=== PATIENT | male | born 1985 | race Caucasian/White ===

== ENCOUNTER 2018-03-13 09:15 | Emergency (ER) | payer OTHER ==
[~2018-03-13] VITALS: Ht 175.3 cm; Wt 88.6 kg
[2018-03-13] MEDS ORDERED: BUSP10TA23 PO (09:19)
[2018-03-13] MEDS ORDERED: QUET200T PO (09:19)
[2018-03-13] MEDS ORDERED: BUPR75 PO (09:19)
[2018-03-13] MEDS ORDERED: OLAN10TA3 PO (09:19)
[2018-03-13] MEDS ORDERED: KETOROLAC TROMETHAMINE 60 MG/2 ML VIAL IM ONE (10:00)
[2018-03-13] MEDS ORDERED: ETHYL CHLORIDE 103.5 ML SPRAY TP ONE (10:00)
[2018-03-13] MEDS ORDERED: LIDOCAINE 1% 10 ML VIAL INJ ONE (11:00)
[2018-03-13 11:31] VITALS: BP 138/94
== END 2018-03-13 11:43 | disposition home or self-care (01) ==
LOC: EMS 09:17
DX: L05.01 Pilonidal cyst with abscess (principal); R03.0 Elevated blood-pressure reading, without diagnosis of hypertension; F41.9 Anxiety disorder, unspecified; F32.9 Major depressive disorder, single episode, unspecified; F17.210 Nicotine dependence, cigarettes, uncomplicated
CPT/HCPCS: 10080; 96372; 99284; J1885; J3490

== ENCOUNTER 2018-03-15 10:05 | Emergency (ER) | payer OTHER ==
[~2018-03-15] VITALS: Ht 175.3 cm; Wt 88.2 kg
[~2018-03-15 10:05] MED LIST: BUPR75 PO; BUSP10TA23 PO; OLAN10TA3 PO; QUET200T PO
[2018-03-15 13:25] VITALS: BP 127/79
== END 2018-03-15 13:29 | disposition home or self-care (01) ==
LOC: EMS 10:05
DX: Z48.01 Encounter for change or removal of surgical wound dressing (principal); L05.91 Pilonidal cyst without abscess; F41.9 Anxiety disorder, unspecified; F32.9 Major depressive disorder, single episode, unspecified; F29 Unspecified psychosis not due to a substance or known physiological condition; F17.210 Nicotine dependence, cigarettes, uncomplicated; Z71.6 Tobacco abuse counseling; Z79.899 Other long term (current) drug therapy
CPT/HCPCS: 99283; 99406

== ENCOUNTER 2018-03-18 19:25 | Emergency (ER) | payer OTHER ==
[~2018-03-18] VITALS: Ht 175.3 cm; Wt 86.4 kg
[2018-03-18] MEDS ORDERED: HYDR-4031 PO (19:40)
[2018-03-18] MEDS ORDERED: LIDOCAINE 2%/EPI 1:200,000/PF 20 ML VIAL INJ ONE (20:15)
[2018-03-18] MEDS ORDERED: CEPHALEXIN MONOHYDRATE 500 MG CAPSULE PO ONE (22:00)
[2018-03-18 22:13] VITALS: BP 121/81
== END 2018-03-18 22:16 | disposition home or self-care (01) ==
LOC: EMS 19:26
DX: L05.01 Pilonidal cyst with abscess (principal); F17.210 Nicotine dependence, cigarettes, uncomplicated; F41.9 Anxiety disorder, unspecified; F32.9 Major depressive disorder, single episode, unspecified; Z79.899 Other long term (current) drug therapy
CPT/HCPCS: 10080; 99284; 99406; J2001

== ENCOUNTER 2018-03-21 18:37 | Emergency (ER) | payer OTHER ==
[~2018-03-21] VITALS: Ht 175.3 cm; Wt 90.9 kg
[~2018-03-21 18:37] MED LIST changes: +HYDR-4031 PO; -OLAN10TA3 PO
[2018-03-21 19:45] VITALS: BP 130/80
== END 2018-03-21 20:35 | disposition home or self-care (01) ==
LOC: EMS 18:38
DX: Z48.00 Encounter for change or removal of nonsurgical wound dressing (principal); F32.9 Major depressive disorder, single episode, unspecified; F41.9 Anxiety disorder, unspecified; F17.210 Nicotine dependence, cigarettes, uncomplicated
CPT/HCPCS: 99283